=== PATIENT | female | born 1990 | race Hispanic/Latino ===

== ENCOUNTER 2019-10-27 21:01 | Emergency (ER) | payer SELFPAY ==
[~2019-10-27] VITALS: Ht 157.5 cm; Wt 79.8 kg
[~2019-10-27 21:01] MED LIST: BENADRYL ALLERG25 MG PO; HYDROCODON-ACE1 EAC3 PO
[2019-10-27] MEDS ORDERED: DEXAMETHASONE SOD PHOS 10 MG/1 ML VIAL IM ONE (21:15)
[2019-10-27] MEDS ORDERED: AMOXICILLIN500 MG PO (21:17)
[2019-10-27] MEDS ORDERED: NAPROSYN500 MG PO (21:17)
--- NOTE | 2019-10-27 21:20 | Emergency Department Note ---
History of Present Illnes History of Present Illness Chief Complaint: Eye, Ear, Nose, Throat, Dental History of Present Illness This is a 29 year old female . Arrival Mode: Car [employer] Required: No Onset (how long ago): day(s) (2 days has hx of sore throat) Radiation: Reports non-radiation Severity: moderate Duration (how long): day(s) (2) Progression: unchanged Chronicity: recurrent Context: Reports recent illness Relieving factors: none Exacerbating factors: none Associated symptoms: Reports fever/chills; Denies nausea/vomiting Treatments prior to arrival: other (Pt has had no loss of taste, smell, no travel to endemic areas, no COVID exposure that she is aware of) Past Medical/Family History Physician Review I have reviewed the patient's past medical and family history. Any updates have been documented here. Past Medical History Recent Fever: Yes Clinical Suspicion of Infectio: Yes New/Unexplained Change in Ment: No Other Medical History: Seasonal Allergies Past Surgical History: Cholecysctectomy Social History Smoking Cessation: Never Smoker Alcohol Use: None Any Illegal Drug Use: No Other Last Tetanus: UTD Review of Systems Review of Systems Constitutional: Reports fever EENTM: Reports nose congestion, Reports throat pain Respiratory: Reports no symptoms Neurological: Reports no symptoms Review of other systems: All other systems negative Physical Exam Related Data Allergies: Coded Allergies: No Known Allergies (Unverified , 09/05/12) Vital signs reviewed: Yes Physical Exam CONSTITUTIONAL Constitutional: Present well-developed, Present well-nourished; Absent distressed, Absent ill appearing HENT HENT: Present normocephalic, Present nasal congestion, Present tonsillar excudate, Present erythema HENT L/R: Present left TM normal, Present right TM normal EYES Eyes: Reports conjunctivae normal NECK Neck: Present supple PULMONARY Pulmonary: Present effort normal, Present breath sounds normal CARDIOVASCULAR Cardiovascular: Present regular rhythm GASTROINTESTINAL Abdominal: Present soft GENITOURINARY SKIN Skin: Present warm MUSCULOSKELETAL Musculoskeletal: Present ROM normal NEUROLOGICAL Neurological: Present alert, Present oriented x 3 PSYCHOLOGICAL Psychological: Present mood/affect normal Assessment & Plan Medical Decision Making MDM strep, viral, mono, COVID Assessment & Plan Final Impression: (1) Pharyngitis Depart Disposition: HOME, SELF-prison Meds Active Scripts Naproxen (NAPROSYN) 500 Mg Tablet, 500 MG PO BID for 7 Days, #14 TAB Prov:WILDA PINO MD 10/27/19 Amoxicillin (AMOXICILLIN) 500 Mg Capsule, 1000 MG PO DAILY for 10 Days, #10 Prov:WILDA PINO MD 10/27/19 Reported Medications Diphenhydramine Hcl (BENADRYL ALLERGY) 25 Mg Tablet, 25 MG PO PRN 09/05/12 Medications in the ED Dexamethasone Sodium Phosphate 10 mg ONCE ONCE IM ; Start 10/27/19 at 21:15; Stop 10/27/19 at 21:16; Status UNV WILDA PINO MD Oct 27, 2019 21:20
[2019-10-27] MEDS ORDERED: DEXAMETHASONE SOD PHOS 10 MG/1 ML VIAL ONE (21:30)
== END 2019-10-27 21:34 | disposition home or self-care (01) ==
LOC: FSED 21:01
DX: J02.9 Acute pharyngitis, unspecified (principal)
CPT/HCPCS: 83518; 99283; J1100

== ENCOUNTER 2021-03-17 21:32 | Emergency (ER) | payer BC, OTHER ==
[~2021-03-17] VITALS: Ht 157.5 cm; Wt 79.8 kg
[~2021-03-17 21:32] MED LIST changes: +AMOXICILLIN500 MG PO; +NAPROSYN500 MG PO
[2021-03-17] MEDS ORDERED: EPINEPHRINE 0.3 MG/0.3 ML PEN.INJCTR SC STA (21:51)
[2021-03-17] MEDS ORDERED: SODIUM CHLORIDE 0.9% 1000ML 1,000 ML IV STA (21:51)
[2021-03-17] MEDS ORDERED: DIPHENHYDRAMINE HCL INJ 50 MG/ML VIAL ONE (21:59)
[2021-03-17] MEDS ORDERED: EPINEPHRINE HCL 1:1000 1ML 1 MG/ML AMP ONE (21:59)
[2021-03-17] MEDS ORDERED: METHYLPREDNISOLONE SOD SUCC 125 MG/2ML VIAL ONE (21:59)
[2021-03-17] MEDS ORDERED: FAMOTIDINE 20 MG/2 ML VIAL IV ONE ×2 (22:00)
[2021-03-17] MEDS ORDERED: METHYLPREDNISOLONE SOD SUCC 125 MG/2ML VIAL IV ONE (22:00)
[2021-03-17] MEDS ORDERED: ALBUTEROL/IPRATROPIUM 3 ML NEB ONE (22:00)
[2021-03-17] MEDS ORDERED: DIPHENHYDRAMINE HCL INJ 50 MG/ML VIAL IV ONE (22:00)
[2021-03-17] MEDS ORDERED: ALBUTEROL/IPRATROPIUM 3 ML NEB NEB ONE (22:00)
[2021-03-17] MEDS ORDERED: FAMOTIDINE20 MG PO (22:02)
[2021-03-17] MEDS ORDERED: EPIPEN JR0.15 MG/01 SQ (22:02)
[2021-03-17] MEDS ORDERED: PREDNISONE20 MG PO (22:02)
[2021-03-17] MEDS ORDERED: DIPHENHYDRAMINE25 MG PO (22:02)
[2021-03-17] MEDS ORDERED: PROVENTIL HFA6.7 GM INH (22:02)
[2021-03-17] MEDS ORDERED: POTASSIUM CHLORIDE 20 MEQ TAB CR PO ONE (22:15)
== END 2021-03-17 22:45 | disposition home or self-care (01) ==
LOC: FSED 21:41
DX: R06.02 Shortness of breath (principal); T78.00XA Anaphylactic reaction due to unspecified food, initial encounter; L50.9 Urticaria, unspecified
CPT/HCPCS: 81003; 81025; 99283; J0171; J1200; J2930

== ENCOUNTER 2021-07-09 08:29 | Emergency (ER) | payer OTHER ==
[~2021-07-09] VITALS: Ht 157.5 cm; Wt 94.4 kg
[~2021-07-09 08:29] MED LIST changes: +DIPHENHYDRAMINE25 MG PO; +EPIPEN JR0.15 MG/01 SQ; +FAMOTIDINE20 MG PO; +PREDNISONE20 MG PO; +PROVENTIL HFA6.7 GM INH
[2021-07-09] MEDS ORDERED: SODIUM CHLORIDE 0.9% 1000ML 1,000 ML IV STA (09:05)
[2021-07-09] MEDS ORDERED: KETOROLAC TROMETHAMINE 30 MG/ML VIAL IV ONE (09:15)
[2021-07-09] MEDS ORDERED: ONDANSETRON HCL INJ 2MG/ML 2ML 2 MG/ML VIAL IV ONE (09:15)
[2021-07-09] MEDS ORDERED: SODIUM CHLORIDE 0.9% 1000ML 1,000 ML ONE (09:33)
[2021-07-09] MEDS ORDERED: ONDANSETRON HCL INJ 2MG/ML 2ML 2 MG/ML VIAL ONE (09:33)
[2021-07-09] MEDS ORDERED: KETOROLAC TROMETHAMINE 30 MG/ML VIAL ONE (09:33)
[2021-07-09] MEDS ORDERED: CEFDINIR300 MG PO (09:39)
[2021-07-09] MEDS ORDERED: ACETAMINOPHEN500 MG PO (09:39)
[2021-07-09] MEDS ORDERED: IBUPROFEN IB200 MG PO (09:39)
[2021-07-09] MEDS ORDERED: CEFTRIAXONE 1 GM VIAL IV ONE (09:45)
[2021-07-09] MEDS ORDERED: CEFTRIAXONE 1 GM in SODIUM CHLORIDE 0.9% 50ML 50 ML IV ONE (10:00)
[2021-07-09] MEDS ORDERED: CEFTRIAXONE 1 GM VIAL ONE (10:09)
[2021-07-09] MEDS ORDERED: SODIUM CHLORIDE 0.9% 50ML 50 ML ONE (10:09)
== END 2021-07-09 10:22 | disposition home or self-care (01) ==
LOC: FSED 09:03
DX: H66.93 Otitis media, unspecified, bilateral (principal); R50.9 Fever, unspecified; N39.0 Urinary tract infection, site not specified; R10.30 Lower abdominal pain, unspecified
CPT/HCPCS: 74176; 80053; 81003; 81025; 85025; 96374; 96375; 99284; J0696; J1885; J2405; J7030